=== PATIENT | female | born 1990 | race Caucasian/White ===

== ENCOUNTER 2017-03-25 18:46 | Observation (INO) | payer MEDICAID ==
[2017-03-25 21:39] LABS: BASO # 0.02 K/mm3 (0.0-2.0); BASO % 0.2 % (0.0-3.0); EOS # 0.3 (0.0-0.7); EOS % 3.9 % (1.5-5.0); GRAN # 4.68 (1.4-6.5); GRAN % 57.7 % (50.0-68.0); HEMOGLOBIN 8.1 g/dL (12.0-16.0); LYMPH # 2.5 (1.2-3.4); LYMPH % 30.1 % (22.0-35.0); MEAN CELL VOLUME 67.4 fl (80.0-105.0); MEAN CORPUSCULAR HEMOGLOBIN 19.1 pg (25.0-35.0); MEAN CORPUSCULAR HGB CONC 28.4 g/dl (31.0-37.0); MONO # 0.7 (0.1-0.6); MONO % 8.1 % (1.0-6.0); PLATELET COUNT 147 10^3/uL (120.0-450.0); RBC 4.23 10^6/uL (3.5-6.1); RED CELL DISTRIBUTION WIDTH 19.1 % (11.5-14.5); WHITE BLOOD COUNT 8.1 10^3/ul (4.5-11.0)
[2017-03-25 21:52] LABS: INR 0.98 (0.93-1.08); PROTHROMBIN TIME 11.2 SECONDS (9.4-12.5)
[2017-03-25 21:53] LABS: PARTIAL THROMBOPLASTIN TIME 29.3 Seconds (25.1-36.5)
[2017-03-25 22:00] LABS: ALB/GLOB RATIO 1.2 (1.1-1.8); ALBUMIN 4.2 g/dL (3.0-4.8); ALT/SGPT 33 U/L (7-56); AST/SGOT 31 U/L (14-36); BLOOD UREA NITROGEN 13 mg/dL (7-21); CALCIUM 8.4 mg/dL (8.4-10.5); GFR AFRICAN-AMERICAN > 60; GFR NON-AFRICAN AMERICAN > 60
--- NOTE | 2017-03-25 23:51 | ED PDOC ---
Arrival/HPI - General Chief Complaint: Abnormal Labs Time Seen by Provider: 03/25/17 20:53 Historian: Patient - History of Present Illness Narrative History of Present Illness (Text): 03/25/17 23:48 A 26 year old female, whose past medical history includes anemia, presents to the emergency department after being referred by her PMD to come in for a blood transfusion. The patient notes that she has just started iron supplementation by her PMD yesterday. The patient states that she walks short distances and becomes tired. The patient denies fevers, chills, headache, dizziness, chest pain, shortness of breath, cough, abdominal pain, nausea, vomiting, diarrhea, back pain, neck pain, urinary/bowel changes, or any other complaint. PMDP: Dr. Navdeep Pineda Time/Duration: Other (Today) Symptom Onset: Sudden Symptom Course: Unchanged Activities at Onset: Rest, Light Context: Home Past Medical History - Provider Review Nursing Documentation Reviewed: Yes - Infectious Disease Hx of Infectious Diseases: None - Hematological/Oncological Hx Anemia: Yes - Psychiatric Hx Substance Use: No - Anesthesia Hx Anesthesia: No Family/Social History - Physician Review Nursing Documentation Reviewed: Yes Family/Social History: No Known Family HX Smoking Status: Current Some Days Smoker Hx Alcohol Use: Yes Frequency of alcohol use: Socially Hx Substance Use: No Allergies/Home Meds Allergies/Adverse Reactions: Allergies seafood Allergy (Uncoded 03/25/17 20:00) RASH Home Medications: Home Meds Medication Instructions Recorded Confirmed No Known Home Med 03/25/17 03/25/17 Review of Systems - Physician Review All systems were reviewed & negative as marked: Yes - Review of Systems Constitutional: absent: Fevers, Night Sweats Respiratory: absent: SOB Cardiovascular: absent: Chest Pain Gastrointestinal: absent: Abdominal Pain, Diarrhea, Nausea, Vomiting Genitourinary Female: absent: Urine Output Changes Musculoskeletal: absent: Back Pain, Neck Pain Neurological: absent: Headache, Dizziness Hemo/Lymphatic: Other (PMD referred pateint for transfusion.) Physical Exam Vital Signs Reviewed: Yes Vital Signs Temp Pulse Resp BP Pulse Ox 03/26/17 07:07 98.6 F 62 18 122/96 H 03/26/17 07:05 78 18 111/78 98 03/26/17 05:31 98.2 F 61 16 126/87 03/26/17 04:46 98.4 F 62 15 122/71 03/26/17 04:25 98.4 F 65 18 125/71 03/26/17 00:00 98.6 F 62 17 130/85 100 03/25/17 22:00 98.6 F 60 15 131/72 100 03/25/17 20:46 98.6 F 63 16 120/70 100 03/25/17 19:55 98.7 F 58 L 16 134/83 99 Temperature: Afebrile Blood Pressure: Normal Pulse: Bradycardic Respiratory Rate: Normal Appearance: Positive for: Well-Appearing, Non-Toxic, Comfortable Pain Distress: None Mental Status: Positive for: Alert and Oriented X 3 - Systems Exam Head: Present: Atraumatic, Normocephalic Pupils: Present: PERRL Extroacular Muscles: Present: EOMI Conjunctiva: Present: Normal Mouth: Present: Moist Mucous Membranes Neck: Present: Normal Range of Motion Respiratory/Chest: Present: Clear to Auscultation, Good Air Exchange. No: Respiratory Distress, Accessory Muscle Use Cardiovascular: Present: Regular Rate and Rhythm, Normal S1, S2. No: Murmurs Abdomen: Present: Normal Bowel Sounds. No: Tenderness, Distention, Peritoneal Signs Back: Present: Normal Inspection Upper Extremity: Present: Normal Inspection. No: Cyanosis, Edema Lower Extremity: Present: Normal Inspection. No: Edema Neurological: Present: GCS=15, CN II-XII Intact, Speech Normal Skin: Present: Warm, Dry, Normal Color. No: Rashes Psychiatric: Present: Alert, Oriented x 3, Normal Insight, Normal Concentration Medical Decision Making ED Course and Treatment: 03/25/17 23:52 Impression: A 26 year old female presents to the emergency department after being referred by her PMD to receive a blood transfusion. Plan: -- Labs -- Reassess and disposition Progress Notes: - Lab Interpretations Lab Results: 03/25/17 21:15 03/25/17 21:15 Lab Results 03/25/17 23:00: Iron 15 L, TIBC 410, % Saturation 4 L 03/25/17 23:00: Ferritin 4.3, Vitamin B12 Pending, Folate Pending 03/25/17 21:15: Blood Type O POSITIVE, Antibody Screen Negative, Crossmatch See Detail, BBK History Checked No verified bt 03/25/17 21:15: Sodium 142, Potassium 4.1, Chloride 109 H, Carbon Dioxide 24, Anion Gap 13, BUN 13, Creatinine 0.6 L, Est GFR ( Amer) > 60, Est GFR ( Non-Af Amer) > 60, Random Glucose 92, Calcium 8.4, Total Bilirubin 0.3, AST 31, ALT 33, Alkaline Phosphatase 91, Total Protein 7.7, Albumin 4.2, Globulin 3.5, Albumin/Globulin Ratio 1.2 03/25/17 21:15: PT 11.2, INR 0.98, APTT 29.3 03/25/17 21:15: WBC 8.1, RBC 4.23, Hgb 8.1 L, Hct 28.5 L, MCV 67.4 L, MCH 19.1 L , MCHC 28.4 L, RDW 19.1 H, Plt Count 147, Gran % 57.7, Lymph % (Auto) 30.1, [place] % (Auto) 8.1 H, Eos % (Auto) 3.9, Baso % (Auto) 0.2, Gran # 4.68, Lymph # 2.5, [place] # 0.7 H, Eos # 0.3, Baso # 0.02 I have reviewed the lab results: Yes - Medication Orders Current Medication Orders: Pantoprazole Sodium (Protonix Ec Tab) 40 mg PO 0600 RISSA Last Admin: 03/26/17 08:10 Dose: Discontinued Medications Iron Sucrose 200 mg/ Sodium (Chloride) 110 mls @ 110 mls/hr IVPB ONCE ONE Stop: 03/26/17 10:59 - Scribe Statement The provider has reviewed the documentation as recorded by the Jamey Woodward Provider Scribe Attestation: All medical record entries made by the Scribe were at my direction and personally dictated by me. I have reviewed the chart and agree that the record accurately reflects my personal performance of the history, physical exam, medical decision making, and the department course for this patient. I have also personally directed, reviewed, and agree with the discharge instructions and disposition. Disposition/Present on Arrival - Present on Arrival Any Indicators Present on Arrival: No History of DVT/PE: No History of Uncontrolled Diabetes: No Urinary Catheter: No History of Decub. Ulcer: No History Surgical Site Infection Following: None - Disposition Have Diagnosis and Disposition been Completed?: Yes Diagnosis: Symptomatic anemia Disposition: HOSPITALIZED Disposition Time: 22:40 Condition: STABLE
[2017-03-26 00:21] LABS: IRON 15 ug/dL (45-180)
[2017-03-26 00:30] LABS: TOTAL IRON BINDING CAPACITY 410 ug/dL (265-497)
[2017-03-26 00:56] LABS: % IRON SATURATION 4 % (20-55)
--- NOTE | 2017-03-26 03:19 | CP.PCM.HP ---
<Ramiro Chahal - Last Filed: 03/26/17 19:59> History of Present Illness - History of Present Illness History of Present Illness: Ms. Tripp is a 26 year old female with a past medical history significant for anemia, recent and gastric bypass who presents after seeing her PMD who recommended she come to the hospital to receive a blood transfusion for her anemia as she has had two months of fatigue with activity and generalized weakness. Patient states that she can not go about her normal day-to-day routine without becoming fatigued. Patient reports that two months ago she received an elective and afterwards experienced heavy bleeding for two weeks, often requiring 10-12 pads per day. She endorses that the physicians there told her that her blood count was "low" and that she should be evaluated for anemia. Patient then went to the hospital for similar complaints and eventually signed out AMA before any testing, including pelvic ultrasound, could be performed. She does note that her PMD recently started her on iron supplementation yesterday. Patient does endorse that she has had periods of palpitations that are self limited as well as recently losing a tooth. Patient denies fevers, chills, headache, changes in her vision, dizziness, chest pain, shortness of breath, cough, wheezing, abdominal pain, N/V, diarrhea, melena, hematochezia, burning/pain with urination, back pain, neck pain/stiffness, or any numbness/tingling/weakness of any extremity. PMH: Anemia PSH: Gastric Bypass, D&C Family History: Denies any family history of any bleeding or coagulation disorders Social History: Endorses social tobacco and alcohol consumption, denies illicit drug use; works party plan demonstrator for [employer]; lives at home with her mother Allergies: Seafood Home Medications: As per MAR Present on Admission - Present on Admission Any Indicators Present on Admission: No Review of Systems - Review of Systems Review of Systems: As stated in HPI, otherwise negative Past Patient History - Infectious Disease Hx of Infectious Diseases: None - Past Social History Smoking Status: Current Some Days Smoker - HEMATOLOGICAL/ONCOLOGICAL Hx Anemia: Yes - PSYCHIATRIC Hx Substance Use: No - ANESTHESIA Hx Anesthesia: No Meds Home Medications: Home Medication List Medication Instructions Recorded Confirmed Type Docusate Sodium [Colace] 100 mg PO BID #60 capsule 03/26/17 Rx Ferrous Sulfate 325 mg PO BID #60 tablet 03/26/17 Rx Allergies/Adverse Reactions: Allergies Allergy/AdvReac Type Severity Reaction Status Date / Time seafood Allergy RASH Uncoded 03/26/17 12:25 Physical Exam - Constitutional Appears: Non-toxic, No Acute Distress - Head Exam Head Exam: ATRAUMATIC, NORMAL INSPECTION, NORMOCEPHALIC - Eye Exam Eye Exam: EOMI, Normal appearance, PERRL. absent: Conjunctival injection, Nystagmus, Periorbital swelling, Periorbital tenderness, Scleral icterus Pupil Exam: NORMAL ACCOMODATION, PERRL. absent: Fixed, Irregular, Miosis, Mydriatic, Unequal - ENT Exam ENT Exam: Mucous Membranes Moist, Normal Exam, Normal External Ear Exam, Normal Oropharynx. absent: Mucous Membranes Dry - Neck Exam Neck exam: Positive for: Full Rom, Normal Inspection. Negative for: Lymphadenopathy, Meningismus, Tenderness, Thyromegaly - Respiratory Exam Respiratory Exam: Clear to Auscultation Bilateral, NORMAL BREATHING PATTERN. absent: Accessory Muscle Use, Chest Wall Tenderness, Decreased Breath Sounds, Prolonged Expiratory Phase, Rales, Rhonchi, Wheezes, Respiratory Distress, Stridor - Cardiovascular Exam Cardiovascular Exam: REGULAR RHYTHM, RRR, +S1, +S2. absent: Bradycardia, Tachycardia, Clicks, Diastolic murmur, Gallop, Irregular Rhythm, JVD, Rubs, +S4 , Systolic Murmur - GI/Abdominal Exam GI & Abdominal Exam: Normal Bowel Sounds, Soft. absent: Bruit, Diminished Bowel Sounds, Distended, Firm, Guarding, Hernia, Hyperactive Bowel Sounds, Hypoactive Bowel Sounds, Mass, Organomegaly, Pulsatile Mass, Rebound, Rigid, Tenderness - Extremities Exam Extremities exam: Positive for: full ROM, normal capillary refill, normal inspection, pedal pulses present. Negative for: calf tenderness, joint swelling , pedal edema, tenderness - Back Exam Back exam: FULL ROM, NORMAL INSPECTION. absent: CVA tenderness (L), CVA tenderness (R), muscle spasm, paraspinal tenderness, rash noted, tenderness, vertebral tenderness - Neurological Exam Neurological exam: Alert, CN II-XII Intact, Normal Gait, Oriented x3 - Psychiatric Exam Psychiatric exam: Normal Affect, Normal Mood - Skin Skin Exam: Dry, Intact, Normal Color, Warm Results - Vital Signs Recent Vital Signs: Last Vital Signs Temp 98.6 F 01/09/18 00:00 Pulse 62 03/26/17 00:00 Resp 17 03/26/17 00:00 BP 130/85 03/26/17 00:00 Pulse Ox 100 03/26/17 00:00 - Labs Result Diagrams: 03/26/17 09:20 03/26/17 09:20 Labs: Laboratory Results - last 24 hr 03/25/17 23:38 Blood Type Confirm O POSITIVE Assessment & Plan - Assessment and Plan (Free Text) Assessment: 26 year old female with a past medical history significant for anemia, recent and gastric bypass who presents after seeing her PMD who recommended she come to the hospital to receive a blood transfusion for her anemia as she has had two months of fatigue with activity and generalized weakness. Patient found to have microcytic hypochromic anemia on CBC. Plan: 1. Microcytic Hypochromic Anemia -H/H: 8.1/28.5; MCV: 67.4; MCH: 19.1; RDW: 19.1 -Coagulation studies WNL -Type and Cross pending -Iron studies, Hemoglobin electrophoresis, Vitamin B12, Folate, and Peripheral Smear pending -Transfuse 1u pRBC's -Daily CBC -Pelvis U/S pending GI Prophylaxis: Protonix DVT Prophylaxis: SCD's Diet: Regular Patient seen and case discussed in detail with attending, Dr. Parish Ceballos. - Date & Time Date: 03/26/17 Time: 03:11 Decision To Admit - Pt Status Changed To: Hospital Disposition Of: Observation - . Bed Request Type: Med/Surg <Parish Ceballos - Last Filed: 03/28/17 06:04> Results - Vital Signs Recent Vital Signs: Last Vital Signs Temp 98 F 03/26/17 16:00 Pulse 100 H 03/26/17 16:00 Resp 17 03/26/17 16:00 BP 128/81 03/26/17 16:00 Pulse Ox 100 03/26/17 16:00 - Labs Result Diagrams: 03/26/17 09:20 03/26/17 09:20 Labs: Laboratory Results - last 24 hr 03/25/17 23:00 Hemoglobin A 97.4 Hemoglobin A2 1.6 L Hemoglobin C 0.0 Hemoglobin F () <1.0 Hemoglobin S 0.0 Variant Hemoglobin 0.0 Hemoglobinopathy Interp See note
[2017-03-26] MEDS ORDERED: Pantoprazole 40 mg EC Tab PO SCH (06:00)
[2017-03-26 09:41] LABS: BASO # 0.02 K/mm3 (0.0-2.0); BASO % 0.3 % (0.0-3.0); EOS # 0.3 (0.0-0.7); EOS % 4.1 % (1.5-5.0); GRAN # 4.38 (1.4-6.5); GRAN % 59.5 % (50.0-68.0); HEMOGLOBIN 8.9 g/dL (12.0-16.0); LYMPH # 2.3 (1.2-3.4); LYMPH % 31.5 % (22.0-35.0); MEAN CELL VOLUME 68.2 fl (80.0-105.0); MEAN CORPUSCULAR HEMOGLOBIN 19.5 pg (25.0-35.0); MEAN CORPUSCULAR HGB CONC 28.6 g/dl (31.0-37.0); MONO # 0.3 (0.1-0.6); MONO % 4.6 % (1.0-6.0); PLATELET COUNT 143 10^3/uL (120.0-450.0); RBC 4.56 10^6/uL (3.5-6.1); RED CELL DISTRIBUTION WIDTH 20.2 % (11.5-14.5); WHITE BLOOD COUNT 7.4 10^3/ul (4.5-11.0)
[2017-03-26] MEDS ORDERED: Barium Sulfate Susp 2.1% w/v, 2.0% w/w 450 mL Bottle PO ONE (09:42)
[2017-03-26 09:46] LABS: ALB/GLOB RATIO 1.1 (1.1-1.8); ALBUMIN 4.1 g/dL (3.0-4.8); ALT/SGPT 25 U/L (7-56); AST/SGOT 25 U/L (14-36); BLOOD UREA NITROGEN 12 mg/dL (7-21); CALCIUM 8.9 mg/dL (8.4-10.5); GFR AFRICAN-AMERICAN > 60; GFR NON-AFRICAN AMERICAN > 60
[2017-03-26] MEDS ORDERED: Iohexol 350 MG/100 ML VIAL ONE (09:47)
[2017-03-26] MEDS ORDERED: Iron Sucrose 100 mg/5 ml Inj IVP ONE (09:55)
[2017-03-26 11:28] LABS: FERRITIN 4.3 ng/mL
[2017-03-26 11:57] LABS: FOLATE 12.1 ng/mL
--- NOTE | 2017-03-26 12:47 | US ---
HISTORY: anemia, s/p bleeding from Menstrual status: LMP October 17, 2016 COMPARISON: None available. TECHNIQUE: Transabdominal only. Real-time technique with 2D, duplex and color Doppler FINDINGS: UTERUS: Measures 4 x 4.5 x 8.8 cm. Normal in size and appearance. No fibroid or other mass lesion seen. ENDOMETRIUM: Measures 9.3 mm in diameter. No ultrasound findings to suggest gestational sac, fluid, debris, mass or polyp or other pathologic process within the endometrium. CERVIX: No cervical abnormality identified. RIGHT OVARY: Measures 1.9 x 3.9 x 4.7 cm. No solid mass. Normal flow. LEFT OVARY: Measures 1.8 x 3.7 x 3.0 cm. No solid mass. Normal flow. FREE FLUID: No significant free fluid noted. OTHER FINDINGS: None. IMPRESSION: Unremarkable pelvic ultrasound.
[2017-03-26] MEDS ORDERED: Iodixanol 320 MG/ML 100 ML BOTTLE IV ONE (13:52)
--- NOTE | 2017-03-26 14:23 | CT ---
PROCEDURE: CT Abdomen and Pelvis with contrast HISTORY: GI bleed COMPARISON: None. TECHNIQUE: Contrast dose: 100 cc of Omni 350 Radiation dose: Total exam DLP = 971 mGy-cm. This CT exam was performed using one or more of the following dose reduction techniques: Automated exposure control, adjustment of the mA and/or kV according to patient size, and/or use of iterative reconstruction technique. FINDINGS: LOWER THORAX: Surgical clips are seen near the GE junction. LIVER: Unremarkable. No gross lesion or ductal dilatation. GALLBLADDER AND BILE DUCTS: Unremarkable. PANCREAS: Unremarkable. No gross lesion or ductal dilatation. SPLEEN: Unremarkable. ADRENALS: Unremarkable. No mass. KIDNEYS AND URETERS: Unremarkable. No hydronephrosis. No solid mass. VASCULATURE: Unremarkable. No aortic aneurysm. BOWEL: Unremarkable. No obstruction. No gross mural thickening. APPENDIX: Normal appendix. PERITONEUM: Unremarkable. No free fluid. No free air. LYMPH NODES: Unremarkable. No enlarged lymph nodes. BLADDER: Unremarkable. REPRODUCTIVE: Unremarkable. BONES: No acute fracture. OTHER FINDINGS: None. IMPRESSION: No acute findings
[2017-03-26 14:37] VITALS: BMI 43.0
[2017-03-26] MEDS ORDERED: Pneumococcal 23-Valent Vaccine IM ONE (14:37)
[2017-03-26] MEDS ORDERED: Influenza Vaccine 60 mcg/0.5 mL SYR (4YR UP) IM ONE (14:37)
[2017-03-26 16:50] VITALS: BP 128/81; PULSE 100; RESP 17; TEMP 98; O2SAT 100
[2017-03-27 03:49] LABS: MCH 18.7 pg (27.0-33.0); MCV 65.2 fL (80.0-100.0)
--- NOTE | 2017-03-27 04:23 | CP.PCM.DIS ---
<Fermín Funk - Last Filed: 03/27/17 04:17> Provider - Provider Date of Admission: 03/25/17 23:27 Attending physician: Monica Figueroa MD Primary care physician: Janette Pool NP [place], [place] Time Spent in preparation of Discharge (in minutes): 45 Diagnosis - Discharge Diagnosis (1) Symptomatic anemia Status: Acute Priority: Medium Hospital Course - Lab Results Lab Results: Most Recent Lab Values WBC 7.4 10^3/ul (4.5-11.0) 03/26/17 09:20 RBC 4.56 10^6/uL (3.5-6.1) 03/26/17 09:20 Hgb 8.9 g/dL (12.0-16.0) L 03/26/17 09:20 Hct 31.1 % (36.0-48.0) L 03/26/17 09:20 MCV 68.2 fl (80.0-105.0) L 03/26/17 09:20 MCH 19.5 pg (25.0-35.0) L 03/26/17 09:20 MCHC 28.6 g/dl (31.0-37.0) L 03/26/17 09:20 RDW 20.2 % (11.5-14.5) H 03/26/17 09:20 Plt Count 143 10^3/uL (120.0-450.0) 03/26/17 09:20 Gran % 59.5 % (50.0-68.0) 03/26/17 09:20 Lymph % (Auto) 31.5 % (22.0-35.0) 03/26/17 09:20 [place] % (Auto) 4.6 % (1.0-6.0) 03/26/17 09:20 Eos % (Auto) 4.1 % (1.5-5.0) 03/26/17 09:20 Baso % (Auto) 0.3 % (0.0-3.0) 03/26/17 09:20 Gran # 4.38 (1.4-6.5) 03/26/17 09:20 Lymph # 2.3 (1.2-3.4) 03/26/17 09:20 [place] # 0.3 (0.1-0.6) 03/26/17 09:20 Eos # 0.3 (0.0-0.7) 03/26/17 09:20 Baso # 0.02 K/mm3 (0.0-2.0) 03/26/17 09:20 Hemoglobinopathy Red Blood Count 4.24 Mill/mcL (3.80-5.10) 03/25/17 23:00 Hemoglobinopathy Hct 27.6 % (35.0-45.0) L 03/25/17 23:00 Hemoglobinopathy Hgb 7.9 g/dL (11.7-15.5) L 03/25/17 23:00 Hemoglobinopathy MCV 65.2 fL (80.0-100.0) L 03/25/17 23:00 Hemoglobinopathy MCH 18.7 pg (27.0-33.0) L 03/25/17 23:00 Hemoglobinopathy RDW 20.0 % (11.0-15.0) H 03/25/17 23:00 PT 11.2 SECONDS (9.4-12.5) 03/25/17 21:15 INR 0.98 (0.93-1.08) 03/25/17 21:15 APTT 29.3 Seconds (25.1-36.5) 03/25/17 21:15 Sodium 143 mmol/L (132-148) 03/26/17 09:20 Potassium 3.7 mmol/L (3.6-5.0) 03/26/17 09:20 Chloride 109 mmol/L (98-107) H 03/26/17 09:20 Carbon Dioxide 22 mmol/L (21-33) 03/26/17 09:20 Anion Gap 17 (10-20) 03/26/17 09:20 BUN 12 mg/dL (7-21) 03/26/17 09:20 Creatinine 0.5 mg/dl (0.7-1.2) L 03/26/17 09:20 Est GFR ( Amer) > 60 03/26/17 09:20 Est GFR (Non-Af Amer) > 60 03/26/17 09:20 Random Glucose 139 mg/dL (70-110) H 03/26/17 09:20 Calcium 8.9 mg/dL (8.4-10.5) 03/26/17 09:20 Iron 15 ug/dL (45-180) L 03/25/17 23:00 TIBC 410 ug/dL (265-497) 03/25/17 23:00 % Saturation 4 % (20-55) L 03/25/17 23:00 Ferritin 4.3 ng/mL 03/25/17 23:00 Total Bilirubin 0.7 mg/dL (0.2-1.3) 03/26/17 09:20 AST 25 U/L (14-36) 03/26/17 09:20 ALT 25 U/L (7-56) 03/26/17 09:20 Alkaline Phosphatase 77 U/L (38-126) 03/26/17 09:20 Total Protein 7.7 g/dL (5.8-8.3) 03/26/17 09:20 Albumin 4.1 g/dL (3.0-4.8) 03/26/17 09:20 Globulin 3.6 gm/dL 03/26/17 09:20 Albumin/Globulin Ratio 1.1 (1.1-1.8) 03/26/17 09:20 Vitamin B12 349 pg/mL (239-931) 03/25/17 23:00 Folate 12.1 ng/mL 03/25/17 23:00 Blood Type O POSITIVE 03/25/17 21:15 Blood Type Confirm O POSITIVE 03/25/17 23:38 Antibody Screen Negative 03/25/17 21:15 Crossmatch See Detail 03/25/17 21:15 BBK History Checked No verified bt 03/25/17 21:15 - Hospital Course Hospital Course: Ms. Tripp is a 26 year old female with a past medical history significant for anemia, two abortions with recent in the past 3 weeks and gastric bypass who presents after seeing her PMD who recommended she come to the hospital to receive a blood transfusion for her anemia as she has had experienced months of fatigue with activity and generalized weakness. Patient states that she can not go about her normal day-to-day routine without becoming fatigued. Patient reports that one month ago she received an elective and afterwards experienced heavy bleeding for two weeks, often requiring 10-12 pads per day. She endorses that the physicians there told her that her blood count was "low" and that she should be evaluated for anemia. Patient then went to the hospital for similar complaints and eventually signed out AMA before any testing, including pelvic ultrasound, could be performed. Patient also endorsed one year of bloody bowel movements that would occur on a daily basis. Patient states she never endorsed this to previous healthcare providers and felt it was due mainly to constipation. States her mother's side of the family is significant for cancer but is unsure of what type of cancers. She is not familiar with her father and therefore does not know his or his family's history. During course of hospital stay patient received both a pelvic ultrasound and CT of abdomen and pelvis. Both results were negative for any acute findings. Patient was supplemented with iron while at the hospital and given prescriptions for iron and colace upon discharge. Patient was given instructions to provide both her OBGYN with whom she has an appointment this week and her primary care physician with whom she will see next week, to provide imaging findings regarding this hospital visit. Patient also instructed to follow up her anemia with further evaluation per primary care physician as well as further iron therapy. Since patient was hemodynamically stable and asymptomatic patient was cleared for discharge. Patient was in agreement with plan of discharge and therefore discharged. Case reviewed and discussed with Dr. Chantal Funk PGY1 Discharge Exam - Head Exam Head Exam: ATRAUMATIC, NORMAL INSPECTION, NORMOCEPHALIC - Eye Exam Eye Exam: EOMI, Normal appearance Pupil Exam: NORMAL ACCOMODATION - ENT Exam ENT Exam: Mucous Membranes Moist - Neck Exam Neck exam: Normal Inspection - Respiratory Exam Respiratory Exam: NORMAL BREATHING PATTERN, UNREMARKABLE - Cardiovascular Exam Cardiovascular Exam: REGULAR RHYTHM, +S1, +S2 - GI/Abdominal Exam GI & Abdominal Exam: Normal Bowel Sounds, Unremarkable - Rectal Exam Rectal Exam: NORMAL INSPECTION - Neurological Exam Neurological exam: Alert, Oriented x3 - Psychiatric Exam Psychiatric exam: Normal Affect, Normal Mood - Skin Skin Exam: Intact, Normal Color, Warm Discharge Plan - Discharge Medications Prescriptions: Docusate Sodium [Colace] 100 mg PO BID #60 capsule Ferrous Sulfate 325 mg PO BID #60 tablet - Follow Up Plan Condition: STABLE Disposition: HOME/ ROUTINE Instructions: Anemia (GEN) Additional Instructions: 1. Please follow up with your PMD within 3-5 days regarding this hospital visit as well as for further iron therapy or obtain a referral for hematology/ oncology from your primary care physician. Make sure to bring the CT abdomen/ pelvis and pelvic ultrasound results with you. 2. Please follow up with your OBGYN as you already have planned considering your appointment is this week. Please be sure to bring the results of your pelvic ultrasound and CT abdomen/pelvis with you for your OBGYN appointment. 3. Fill and take medications and prescribed. 4. If symptoms worsen do not hesitate to return to the emergency department. <Melanie Cornejo - Last Filed: 03/27/17 14:02> Provider - Provider Date of Admission: 03/25/17 22:57 Attending physician: Monica Figueroa MD Hospital Course - Lab Results Lab Results: Most Recent Lab Values WBC 7.4 10^3/ul (4.5-11.0) 03/26/17 09:20 RBC 4.56 10^6/uL (3.5-6.1) 03/26/17 09:20 Hgb 8.9 g/dL (12.0-16.0) L 03/26/17 09:20 Hct 31.1 % (36.0-48.0) L 03/26/17 09:20 MCV 68.2 fl (80.0-105.0) L 03/26/17 09:20 MCH 19.5 pg (25.0-35.0) L 03/26/17 09:20 MCHC 28.6 g/dl (31.0-37.0) L 03/26/17 09:20 RDW 20.2 % (11.5-14.5) H 03/26/17 09:20 Plt Count 143 10^3/uL (120.0-450.0) 03/26/17 09:20 Gran % 59.5 % (50.0-68.0) 03/26/17 09:20 Lymph % (Auto) 31.5 % (22.0-35.0) 03/26/17 09:20 [place] % (Auto) 4.6 % (1.0-6.0) 03/26/17 09:20 Eos % (Auto) 4.1 % (1.5-5.0) 03/26/17 09:20 Baso % (Auto) 0.3 % (0.0-3.0) 03/26/17 09:20 Gran # 4.38 (1.4-6.5) 03/26/17 09:20 Lymph # 2.3 (1.2-3.4) 03/26/17 09:20 [place] # 0.3 (0.1-0.6) 03/26/17 09:20 Eos # 0.3 (0.0-0.7) 03/26/17 09:20 Baso # 0.02 K/mm3 (0.0-2.0) 03/26/17 09:20 Hemoglobinopathy Red Blood Count 4.24 Mill/mcL (3.80-5.10) 03/25/17 23:00 Hemoglobinopathy Hct 27.6 % (35.0-45.0) L 03/25/17 23:00 Hemoglobinopathy Hgb 7.9 g/dL (11.7-15.5) L 03/25/17 23:00 Hemoglobinopathy MCV 65.2 fL (80.0-100.0) L 03/25/17 23:00 Hemoglobinopathy MCH 18.7 pg (27.0-33.0) L 03/25/17 23:00 Hemoglobinopathy RDW 20.0 % (11.0-15.0) H 03/25/17 23:00 PT 11.2 SECONDS (9.4-12.5) 03/25/17 21:15 INR 0.98 (0.93-1.08) 03/25/17 21:15 APTT 29.3 Seconds (25.1-36.5) 03/25/17 21:15 Sodium 143 mmol/L (132-148) 03/26/17 09:20 Potassium 3.7 mmol/L (3.6-5.0) 03/26/17 09:20 Chloride 109 mmol/L (98-107) H 03/26/17 09:20 Carbon Dioxide 22 mmol/L (21-33) 03/26/17 09:20 Anion Gap 17 (10-20) 03/26/17 09:20 BUN 12 mg/dL (7-21) 03/26/17 09:20 Creatinine 0.5 mg/dl (0.7-1.2) L 03/26/17 09:20 Est GFR ( Amer) > 60 03/26/17 09:20 Est GFR (Non-Af Amer) > 60 03/26/17 09:20 Random Glucose 139 mg/dL (70-110) H 03/26/17 09:20 Calcium 8.9 mg/dL (8.4-10.5) 03/26/17 09:20 Iron 15 ug/dL (45-180) L 03/25/17 23:00 TIBC 410 ug/dL (265-497) 03/25/17 23:00 % Saturation 4 % (20-55) L 03/25/17 23:00 Ferritin 4.3 ng/mL 03/25/17 23:00 Total Bilirubin 0.7 mg/dL (0.2-1.3) 03/26/17 09:20 AST 25 U/L (14-36) 03/26/17 09:20 ALT 25 U/L (7-56) 03/26/17 09:20 Alkaline Phosphatase 77 U/L (38-126) 03/26/17 09:20 Total Protein 7.7 g/dL (5.8-8.3) 03/26/17 09:20 Albumin 4.1 g/dL (3.0-4.8) 03/26/17 09:20 Globulin 3.6 gm/dL 03/26/17 09:20 Albumin/Globulin Ratio 1.1 (1.1-1.8) 03/26/17 09:20 Vitamin B12 349 pg/mL (239-931) 03/25/17 23:00 Folate 12.1 ng/mL 03/25/17 23:00 Blood Type O POSITIVE 03/25/17 21:15 Blood Type Confirm O POSITIVE 03/25/17 23:38 Antibody Screen Negative 03/25/17 21:15 Crossmatch See Detail 03/25/17 21:15 BBK History Checked No verified bt 03/25/17 21:15 Attending/Attestation - Attestation I have personally seen and examined this patient.: Yes I have fully participated in the care of the patient.: Yes I have reviewed all pertinent clinical information, including history, physical exam and plan: Yes Notes (Text): 03/27/17 13:57 Attending note; Patient seen and examined with resident. Patient is a 26-year-old female with a past medical history of gastric bypass surgery 10 years ago, anemia not on treatment, 2 abortions recent 2 months ago is admitted with symptomatic anemia. Hemoglobin is 7.8 from PMDs office. 1 unit PRBC transfusion given. Hemoglobin is 9.1. Symptoms resolved. Pelvic ultrasound is negative. History of questionable hemorrhoids/obstipation and intermittent blood in the stool. CT is negative. Patient was advised to follow-up with GI per PMD. Currently no active bleeding. No abdominal pain. No [employer] bleeding. Tolerating diet. IV Venofer 1 dose given. Prescriptions for ferrous sulfate and Colace given. Patient is strongly advised to follow-up with PMD in 2 days. Needs outpatient [employer] and GI evaluation. Patient agreed to do the same. Diagnosis; Anemia History of gastric bypass
[2017-03-28 03:44] LABS: HEMOGLOBIN A 97.4 Percent (>96.0); HEMOGLOBIN A2 1.6 Percent (1.8-3.5)
== END 2017-03-26 16:40 | disposition home or self-care (01) ==
LOC: ED 18:46 → ERH 22:57 → UNDOADMOB 23:27 → ERH 23:27 → 2A 03-26 08:12 → ERH 03-26 08:12 → UNDODISOB 03-26 16:40
PROVIDERS: ADMIT Internal Medicine; ATTEND Internal Medicine
DX: D50.9 Iron deficiency anemia, unspecified (principal); Z98.84 Bariatric surgery status; Z87.891 Personal history of nicotine dependence
CPT/HCPCS: 36415; 36430; 74177; 76856; 80053; 82607; 82728; 82746; 83021; 83540; 83550; 85014; 85018; 85025; 85041; 85610; 85730; 86850; 86900; 86920; 99282; G0378; J1756; P9016; Q9967

== ENCOUNTER 2018-05-18 20:23 | Emergency (ER) | payer SELFPAY ==
[2018-05-18 20:23] VITALS: BMI 43.0
[2018-05-18 20:43] VITALS: BP 133/85; PULSE 55; RESP 18; TEMP 98.4; O2SAT 98
--- NOTE | 2018-05-18 21:22 | ED PDOC ---
Arrival/HPI - General Chief Complaint: Abdominal Pain Time Seen by Provider: 05/18/18 20:24 Historian: Patient - History of Present Illness Narrative History of Present Illness (Text): 05/18/18 21:19 27F w/ a PMH of anemia, abortions, gastric bypass presenting to [facility] ED w/ complaints of Nausea/Vomiting + Mild abdominal pain x3 days. Patient reported N/V has been worsening over the past 3 days requiring her to call out of work; describes abdominal pain as a diffuse periumbilical pain w/ radiation to her back, stabbing in nature. Abdominal pain is worsened w/ food. Patient denies any changes in bowel movement including diarrhea, constipation, hematochezia/ melena. Emesis has been NBNB in nature. Does complain of associated headache at this time. Offers no urinary complaints. Remainder 12 system ROS is otherwise negative. 05/18/18 21:22 Time/Duration: Prior to Arrival, < week Symptom Course: Worsening Quality: Stabbing Past Medical History - Provider Review Nursing Documentation Reviewed: Yes - Infectious Disease Hx of Infectious Diseases: None - Cardiac Hx Cardiac Disorders: No - Pulmonary Hx Respiratory Disorders: No - Neurological Hx Neurological Disorder: No - HEENT Hx HEENT Disorder: No - Renal Hx Renal Disorder: No - Endocrine/Metabolic Hx Endocrine Disorders: No - Hematological/Oncological Hx Anemia: Yes - Integumentary Hx Dermatological Disorder: No - Musculoskeletal/Rheumatological Hx Musculoskeletal Disorders: No Hx Falls: No - Gastrointestinal Hx Gastrointestinal Disorders: Yes (BLACK STOOL 1-8-18) - Genitourinary/Gynecological Hx Genitourinary Disorders: No - Psychiatric Hx Psychophysiologic Disorder: No Hx Substance Use: No - Anesthesia Hx Anesthesia: No Family/Social History - Physician Review Nursing Documentation Reviewed: Yes Family/Social History: No Known Family HX Smoking Status: Current Some Days Smoker Hx Alcohol Use: Yes (SOCIALLY) Hx Substance Use: No Allergies/Home Meds Allergies/Adverse Reactions: Allergies seafood Allergy (Uncoded 05/18/18 20:45) ANAPHYLAXIS Home Medications: Home Meds Medication Instructions Recorded Confirmed No Known Home Med 05/18/18 05/18/18 Review of Systems - Review of Systems Constitutional: Normal Eyes: Normal ENT: Normal Respiratory: Normal Cardiovascular: Normal Gastrointestinal: Abdominal Pain, Nausea, Vomiting, Appetite Changes. absent: Stool Changes, Constipation, Diarrhea, Hematochezia, Hematemesis Genitourinary Female: Normal Musculoskeletal: Normal Skin: Normal Neurological: Normal Endocrine: Normal Hemo/Lymphatic: Normal Psychiatric: Normal Physical Exam Vital Signs Reviewed: Yes Vital Signs Temp Pulse Resp BP Pulse Ox 05/18/18 20:42 98.4 F 55 L 18 133/85 98 Temperature: Afebrile Blood Pressure: Normal Pulse: Regular Respiratory Rate: Normal Appearance: Positive for: Well-Appearing, Non-Toxic, Comfortable Pain Distress: None Mental Status: Positive for: Alert and Oriented X 3 - Systems Exam Head: Present: Atraumatic, Normocephalic Pupils: Present: PERRL Extroacular Muscles: Present: EOMI Mouth: Present: Moist Mucous Membranes Respiratory/Chest: Present: Clear to Auscultation, Good Air Exchange. No: Respiratory Distress, Accessory Muscle Use Cardiovascular: Present: Regular Rate and Rhythm, Normal S1, S2. No: Murmurs Abdomen: Present: Tenderness (very mild tenderness in the epigastric / periumbilical area to DEEP palpation), Normal Bowel Sounds, Other ([place] sign negative). No: Distention, Peritoneal Signs Upper Extremity: Present: Normal Inspection. No: Cyanosis, Edema Lower Extremity: Present: Normal Inspection. No: Edema Neurological: Present: GCS=15, CN II-XII Intact, Speech Normal Skin: Present: Warm, Dry, Normal Color. No: Rashes Psychiatric: Present: Alert, Oriented x 3, Normal Insight, Normal Concentration Medical Decision Making ED Course and Treatment: 05/18/18 21:29 Impression: 27F w/ Epigastric/ Periumbilical Abd Pain N/V worsening over the past 3 days Patient left AMA prior to completing the following lab work/ treatment plan CBC/CMP UA LIPASE TORADOL ZOFRAN risks vs benefits of ED evaluation explained to patient Patient understands risks/ benefits Patient wants to sign out AMA - Medication Orders Current Medication Orders: Ondansetron HCl (Zofran Inj) 4 mg IVP STAT STA Stop: 05/18/18 21:19 Disposition/Present on Arrival - Present on Arrival Any Indicators Present on Arrival: No History of DVT/PE: No History of Uncontrolled Diabetes: No Urinary Catheter: No History of Decub. Ulcer: No History Surgical Site Infection Following: None - Disposition Have Diagnosis and Disposition been Completed?: Yes Diagnosis: Nausea & vomiting Disposition: AGAINST MEDICAL ADVICE Disposition Time: 21:49 Condition: STABLE Referrals: FAMILY PROVIDER,NO [Primary Care Provider] - Follow up with primary
== END 2018-05-18 21:56 | disposition left against medical advice (07) ==
LOC: ED 20:23
DX: R11.2 Nausea with vomiting, unspecified (principal); D64.9 Anemia, unspecified; Z98.84 Bariatric surgery status